=== PATIENT | female | born 1960 | race Caucasian/White ===

== ENCOUNTER → 2018-02-26 16:37 | Outpatient (CLI) | payer BC, SELFPAY ==
--- NOTE | 2018-02-26 10:37 | COLBX_PTH ---
PATIENT: GRACIELA BETANCOURT LOC: [facility] U#:[id number] AGE/SX: 64/F ROOM: RE02/26/[address]: Dr. Jacky Robin MD : 1960 BED: DIS: SPEC #: [id number] RECD: 02/26/18 15:33 STATUS: MILENA SCARLETT #: [id number] JACLYN: 02/26/18 10:[address]: Jacky Robin DEPT: SURGICAL PATHOLOGY RECD BY: Michaelle Cruz ENTERED: 02/27/18 11:30 SP TYPE: COLON BX EVY DR: KATHERINE Tissues: A - COLON BIOPSY B - COLON BIOPSY C - Sigmoid colon biopsy Procedures: Surgery Specimen Level IV HEADER OPERATION: Colonoscopy with biopsy PRE-OP DIAGNOSIS: History ulcerative colitis TISSUE SUBMITTED: A - Biopsy right colon, rule out UC/dysplasia, B - Biopsy left colon, rule out UC/dysplasia, C - Polyp at 25 cm (sigmoid), rule out pseudopolyp/dysplasia MICROSCOPIC DIAGNOSIS A. Right colon, biopsy: Mild melanosis coli. No evidence of colitis. B. Left colon, biopsy: Chronic active colitis pattern of injury with mild activity. No evidence of dysplasia. C. Colonic polyp at 25 cm, biopsy: Inflammatory pseudopolyp. No evidence of dysplasia. AM:albert 03/02/18 MICROSCOPIC DESCRIPTION Slides are reviewed. GROSS DESCRIPTION A - Received in fixative is one container labeled with the patient's name and designated right colon biopsy. The specimen consists of multiple irregular and elongated fragments of light rider-white soft tissue that in aggregate measure 1 x 0.2 x 0.1 cm. The specimen is totally submitted in one cassette. B - Received in fixative is one container labeled with the patient's name and designated left colon biopsy. The specimen consists of multiple irregular and elongated fragments of light rider-white soft tissue that in aggregate measure 0.8 x 0.7 x 0.1 cm. The specimen is totally submitted in one cassette. C - Received in fixative is one container labeled with the patient's name and designated sigmoid polyp at 25 cm. The specimen consists of a light rider polyp measuring 1.5 x 1 x 1 cm. The specimen is trisected and totally submitted in one cassette. / AM:albert 02/27/18 TC:1 CPT: 50890 x3
== END ==
PROVIDERS: Referring Provider Internal Medicine Gastroenterology; Visit Provider Internal Medicine Gastroenterology
DX: K63.89 Other specified diseases of intestine (principal); K52.9 Noninfective gastroenteritis and colitis, unspecified; K51.40 Inflammatory polyps of colon without complications; K51.90 Ulcerative colitis, unspecified, without complications
CPT/HCPCS: 88305

== ENCOUNTER → 2022-02-04 | Outpatient (CLI) | payer BC, SELFPAY ==
[2022-02-04 12:11] LABS: Erythrocyte Sedimentation Rate 8 mm/hr (0-30)
[2022-02-04 12:14] LABS: Hematocrit 42.6 % (37-47); Hemoglobin 13.8 g/dL (12.0-15.0); Mean Corp Hgb Conc 32.4 g/dL (32-36); Mean Corpuscular Hgb 30.3 pg (27.0-32.0); Mean Corpuscular Volume 93.4 fL (81-99); Mean Platelet Vol. 10.5 fl (6.2-12.0); Platelet Count 300 K/mm3 (150-450); RBC Distribution Width CV 13.8 % (11.6-14.6); RBC Distribution Width SD 47.8 fl (35.1-43.9); Red Blood Count 4.56 M/mm3 (4.2-5.4); White Blood Count 4.9 K/mm3 (4.4-11.0)
[2022-02-04 12:29] LABS: ALB/GLOB Ratio 0.8 RATIO (0.9-2.4); AST(SGOT) 17 U/L (15-37); Alanine Aminotransfer ALT/SGPT 30 U/L (13-56); Albumin, Serum 3.1 g/dL (3.2-5.0); Alkaline Phosphatase 85 U/L (45-117); Anion Gap 4 (5-15); BUN 11 mg/dL (7-18); BUN/Creat Ratio 16.1 RATIO (10-20); CRP 4.54 mg/L (0.0-3.0); Calcium,Total 8.9 mg/dL (8.5-10.1); Chloride 104 mmol/L (98-107); Creatinine, Serum 0.68 mg/dL (0.55-1.02); EST Glomerular Filtration Rate 92 mL/min (>60); Est Glom Filt Rate - Afr Amer 112 mL/min (>60); Globulin 4.1 g/dL (2.2-4.2); Glucose 96 mg/dL (74-106); Potassium 3.8 mmol/L (3.5-5.1); Protein, Total 7.2 g/dL (6.4-8.2); Sodium Level 140 mmol/L (136-145)
== END | disposition home or self-care (01) ==
PROVIDERS: PCP Family Medicine; Referring Provider Internal Medicine Gastroenterology; Visit Provider Internal Medicine Gastroenterology
DX: K51.90 Ulcerative colitis, unspecified, without complications (principal)
CPT/HCPCS: 36415; 80053; 85027; 85652; 86140